=== PATIENT | male | born 2000 | race Caucasian/White ===

== ENCOUNTER 2021-05-13 10:06 | Emergency (ER) | payer BC ==
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
[2021-05-13] MEDS ORDERED: Acetaminophen/HYDROcodone 325-5 MG Tab PO ONE (11:21)
[2021-05-13] MEDS ORDERED: Ondansetron 4 MG Tab.DIS PO ONE (11:21)
[2021-05-13] MEDS ORDERED: Oxymetazoline 0.05% Nasal Spray 15 ML Bottle NAS ONE (11:26)
[2021-05-13] MEDS ORDERED: Lidocaine 2% Viscous Solution 15 ML Cup PO ONE (11:26)
[2021-05-13] MEDS: Benzocaine 20% Topical Spray UD MUCMEM ONE ×2 (11:52→12:54)
[2021-05-13] MEDS ORDERED: Oxymetazoline 0.05% Nasal Spray 30 ML Bottle NAS ONE (12:22)
== END 2021-05-13 12:49 | disposition home or self-care (01) ==
LOC: MW.ED 10:06
DX: S02.2XXA Fracture of nasal bones, initial encounter for closed fracture (principal); F10.10 Alcohol abuse, uncomplicated; Y04.0XXA Assault by unarmed brawl or fight, initial encounter
CPT/HCPCS: 70450; 70486; 99284; A9270